=== PATIENT | female | born 1965 ===

== ENCOUNTER 2018-01-15 16:07 | Emergency (ER) | payer BC ==
[2018-01-15 16:20] VITALS: TEMP 99.5
[2018-01-15 17:06] VITALS: BP 135/72; PULSE 106; RESP 18; O2SAT 98
--- NOTE | 2018-01-15 17:46 | C.PDOC ---
History Of Present Illness 52 y/o female, w/PMhx of peripheral vascular disease, presents to the ER for evaluation of headache and back pain which has been present for the past few days. Patient states that she was prescribed Cilostazol by her PMD 5 days ago. Since then, she reports that she has been experiencing side effects from the medications, she has headache, rapid heart rate, and lower back pain. She notes that she called her PMD's office and they told her to break the pill in half, she followed their instructions without relief. She took Tylenol with some rleif. Denies having CP, SOB, nausea, vomiting ,abdominal pain , bowel/bladder incontinence, and saddle anaesthesia. Time Seen by Provider: 01/15/18 17:04 Chief Complaint (Nursing): Back Pain History Per: Patient History/Exam Limitations: no limitations Onset/Duration Of Symptoms: Days Current Symptoms Are (Timing): Still Present Severity: Moderate Past Medical History Reviewed: Historical Data, Nursing Documentation, Vital Signs Vital Signs: Last Vital Signs Temp 99.5 F 01/15/18 17:05 Pulse 106 H 01/15/18 17:05 Resp 18 01/15/18 17:05 BP 135/72 01/15/18 17:05 Pulse Ox 98 01/15/18 19:27 - Medical History PMH: HTN Surgical History: Family History: States: No Known Family Hx - Social History Hx Alcohol Use: No Hx Substance Use: No - Immunization History Hx Tetanus Toxoid Vaccination: No Hx Influenza Vaccination: No Review Of Systems Except As Marked, All Systems Reviewed And Found Negative. Cardiovascular: Negative for: Chest Pain Respiratory: Negative for: Shortness of Breath Gastrointestinal: Negative for: Nausea, Vomiting, Abdominal Pain Genitourinary: Negative for: Incontinence Musculoskeletal: Positive for: Back Pain Neurological: Positive for: Headache Physical Exam - Physical Exam Appears: Non-toxic, No Acute Distress Skin: Normal Color, Warm, Dry Head: Atraumatic, Normacephalic Eye(s): bilateral: Normal Inspection Nose: Normal Oral Mucosa: Moist Neck: Supple Chest: Symmetrical Cardiovascular: Rhythm Irregular (slightly irregular rhythm), No Murmur Respiratory: Normal Breath Sounds, No Rales, No Rhonchi, No Wheezing Back: No Vertebral Tenderness, Paraspinal Tenderness (paralumbar tenderness), Straight Leg Raising (negative) Extremity: Normal ROM Pulses: Left Dorsalis Pedis: Normal (DP/PT), Right Dorsalis Pedis: Normal (DP/PT ) Neurological/Psych: Oriented x3, Normal Speech ED Course And Treatment ECG: Interpreted By Me, Viewed By Me ECG Rhythm: Sinus Tachycardia Interpretation Of ECG: Sinus Tachycardia with normal intervals, normal axises, and non- specific T wave changes Rate From EC O2 Sat by Pulse Oximetry: 98 (RA) Pulse Ox Interpretation: Normal Medical Decision Making Medical Decision Making: Assessment: Back Pain, Medication Side Effects Plan: --EKG --Motrin PO Progress: Patient has new side effects from medication including headache and tachycardia. Patient has repeat heart rate 98 bpm. She has been instructed to stop taking medications and take Motrin as needed for pain. She has been advised to follow up with PMD tomorrow and return to ER if symptoms worsen or progress. Disposition - Disposition Disposition: HOME/ ROUTINE Disposition Time: 17:44 Condition: STABLE Additional Instructions: follow up with your doctor tomorrow stop new medication take naprosyn as needed for pain return to ER if symptoms worsens or progress Prescriptions: Naproxen [Naprosyn] 500 mg PO BID PRN #16 tab PRN Reason: Pain, Moderate (4-7) Instructions: Low Back Pain (DC), Side Effects From Medicines Forms: Gen Discharge Inst Citizen [place], [employer] [place] [employer] (Citizen [place]) Print Language: PORTUGUESE - Clinical Impression Clinical Impression: Low back pain, Medication side effect - Scribe Statement The provider has reviewed the documentation as recorded by the Jas Mai Provider Attestation: All medical record entries made by the Davidibadri were at my direction and personally dictated by me. I have reviewed the chart and agree that the record accurately reflects my personal performance of the history, physical exam, medical decision making, and the department course for this patient. I have also personally directed, reviewed, and agree with the discharge instructions and disposition.
--- NOTE | 2018-01-16 17:59 | CARD ---
APPROVED REPORT Date of service: 01/15/2018 EKG Measurement Heart [id number] <Conclusion> Sinus tachycardia Nonspecific T wave abnormality Abnormal ECG
== END 2018-01-15 17:55 | disposition home or self-care (01) ==
LOC: C.ER 16:07
DX: M54.5 Low back pain (principal); T45.525A Adverse effect of antithrombotic drugs, initial encounter